=== PATIENT | female | born 1945 | race Caucasian/White ===

== ENCOUNTER → 2021-03-12 12:40 | Day surgery (SDC) | payer MEDICARE, SELFPAY | PROVIDERS: PCP Family Medicine; Visit Provider Orthopaedic Surgery | DX: Z01.818 Encounter for other preprocedural examination (principal) | CPT/HCPCS: 93005 ==

== ENCOUNTER 2021-03-25 11:56 | Observation (INO) | payer MEDICARE, SELFPAY ==
[2021-03-12 12:09] VITALS: BMI 28.5
[2021-03-12 12:37] LABS: Basophils # 0.1 10^3/uL (0.0-0.1); Basophils % 0.8 %; Eosinophils # 0.3 10^3/uL (0.0-0.8); Eosinophils % 3.7 %; Hematocrit 39.8 % (37.0-47.0); Hemoglobin 12.9 g/dL (11.5-15.3); Lymphocytes # 3.1 10^3/uL (0.8-4.8); Lymphocytes % 41.9 %; Mean Corpuscular HGB Conc 32.4 g/dL (30.0-36.0); Mean Corpuscular Hemoglobin 32.9 pg (28.0-34.0); Mean Corpuscular Volume 101.5 fL (81-99); Mean Platelet Volume 10.7 fL (7.4-10.4); Monocytes # 0.7 10^3/uL (0.2-0.9); Monocytes % 9.9 %; Neutrophils # 3.17 10^3/uL (1.8-7.7); Neutrophils % 43.4 %; Nucleated Red Blood Cells % 0 %; Platelet Count 232 10^3/cmm (130-400); Red Blood Count 3.92 10^6/uL (4.1-5.3); Red Cell Distribution Width 14.3 % (12.1-15.1); White Blood Count 7.3 10^3/uL (4.0-10.0)
--- NOTE | 2021-03-12 12:40 | ECG_ITS ---
[facility] [place] Date: 2021-03-12 Pat Name: Washington Reyes Department: Room: Gender: Female [employer] Player: : 1945 Requested By: Joshua Rivera Order Number: [id number] Ronak MD: Abram Alvarez M.D. Measurements Intervals [place] Rate: 56 P: 23 CA: 207 QRS: 11 QRSD: 100 T: -1 QT: 370 QTc: 360 Interpretive Statements SINUS BRADYCARDIA INFERIOR MYOCARDIAL INFARCTION [40+ ms Q WAVE AND/OR ST/T ABNORMALITY IN II/aVF], PROBABLY OLD Compared to ECG 04/14/2016 22:01:26 Myocardial infarct finding now present Sinus rhythm no longer present Sinus arrhythmia no longer present Intraventricular conduction delay no longer present T-wave abnormality no longer present Possible ischemia no longer present Electronically Signed On 03-12-2021 19:14:14 CDT by Abram Alvarez M.D. [id number]
[2021-03-12 12:55] LABS: Alanine Aminotransferase 10 U/L (0-33); Albumin Level 3.7 g/dL (3.5-5.2); Alkaline Phosphatase 80 IU/L (35-105); Aspartate Amino Transferase 21 U/L (0-32); Blood Urea Nitrogen 15 mg/dL (8-23); Calcium 8.6 mg/dL (8.5-10.5); Carbon Dioxide 25 mmol/L (22-29); Chloride 103 mmol/L (98-107); Globulin 3.2 g/dL (1.3-4.6); Glucose 102 mg/dL (65-115); Osmolality Calculated 289 mOsm/kg (285-295); Sodium 139 mmol/L (136-145); Total Bilirubin 0.4 mg/dL (0.15-1.2); Total Protein 6.9 g/dL (6.6-8.7)
[2021-03-12 12:56] LABS: Anion Gap 14.4 (5-19); Potassium 3.4 mmol/L (3.5-5.1)
--- NOTE | 2021-03-12 14:22 | P.ANESASSM_ITS ---
Pre-Anesthetic Assessment Pre-Anesthetic Assessment: Height/Weight: Height 1.6 m Weight 73.028 kg Proposed Procedure: Operation Date: 03/25/21 12:20 Proposed Procedures p right total knee arthroplasty 17536 M17.11(Right) - Johnny Wong MD Was Beta Harinder taken within 24 hours: N/A Was Clonidine taken within 24 hours: N/A Social: Social History: No alcohol and No tobacco Exam: Pre-Anes Outpt Exam: alert, oriented x 3, clear to auscultation bilaterally and regular rate & rhythm Airway: Submandibular: WNL Cervical ROM: WNL MP: 2 Dentition: Chipped Additional comments: Generally full, some chipped CV/HEM: CV/HEM: HTN Metabolic: Metabolic: Thyroid Musc/skel: Musc/skel: OA/DJD Anesthetic Plan: ASA status: 2 Anesthesia: Regional (specify below) (SAB/adductor blk) Risk of > 500 ml blood loss (7ml/kg in children): No Data Anesthesia CBC & Chem 7: 03/12/21 12:30 03/12/21 12:30 Other Labs: Laboratory Results - last 48 hr 03/12/21 03/12/21 12:30 12:30 WBC 7.3 RBC 3.92 L Hgb 12.9 Hct 39.8 MCV 101.5 H MCH 32.9 MCHC 32.4 RDW 14.3 Plt Count 232 MPV 10.7 H Neut % (Auto) 43.4 Lymph % (Auto) 41.9 [place] % (Auto) 9.9 Eos % (Auto) 3.7 Baso % (Auto) 0.8 Neut # (Auto) 3.17 Lymph # (Auto) 3.1 [place] # (Auto) 0.7 Eos # (Auto) 0.3 Baso # (Auto) 0.1 Nucleated RBC % (auto) 0 Nucleated RBCs # 0.0 Sodium 139 Potassium 3.4 L Chloride 103 Carbon Dioxide 25 Anion Gap 14.4 BUN 15 Creatinine 1.0 H GFR Calculation Not Reportable Glucose 102 Calculated Osmolality 289 Calcium 8.6 Total Bilirubin 0.4 AST 21 ALT 10 Alkaline Phosphatase 80 Total Protein 6.9 Albumin 3.7 Globulin 3.2 Cardiac Studies: No Data to Display
[2021-03-25] VITALS (21 sets, daily range): BP systolic 114–160; BP diastolic 47–90; PULSE 62–89; RESP 14–20; TEMP 36.4–36.8; O2SAT 95–99
[2021-03-25] MEDS: sodium chloride 0.9% 1,000 ML 30 ML IV (08:22)
[2021-03-25] MEDS: oxyCODONE 20 mg ER (12 HR) Tablet PO (08:29)
[2021-03-25] MEDS: CELEcoxib 200 mg Capsule 400 MG PO (08:30)
[2021-03-25] MEDS: gabapentin 300 mg Capsule PO ×2 (08:30→17:05)
[2021-03-25] MEDS: acetaminophen 500 mg Tablet 1000 MG PO ×2 (08:30→17:04)
--- NOTE | 2021-03-25 09:12 | P.ANESUD_ITS ---
Pre-Anesthetic Update Pre-Anesthetic Assessment: Date of Surgery/Procedure: 03/25/21 Preop Alexandra gnosis: Osteoarthritis Right knee Proposed Procedure: Operation Date: 03/25/21 09:40 Proposed Procedures p right total knee arthroplasty 53593 M17.11(Right) - Johnny Wong MD Any changes to Pre-Anesthetic Assessment?: No Last Intake: Intake Last Liquid Date 03/24/21 Last Liquid Time 21:00 Last Solid Date 03/24/21 Last Solid Time 21:00 Vitals: Temperature 97.7 F 03/25/21 07:55 Temperature Source Temporal Artery S can 03/25/21 07:55 Pulse Rate 62 03/25/21 07:55 Respiratory Rate 18 03/25/21 07:55 Respiratory Depth Normal 03/25/21 08:29 Respiratory Patter n 03/25/21 08:29 Blood Pressure 160/90 03/25/21 07:55 Blood Pressure Evonne n 113 03/25/21 07:55 Pulse Oximetry 97 03/25/21 08:29 Oxygen Delivery Me thod 03/25/21 08:00 Exam: Pre-Anes Outpt Exam: alert, oriented x 3, clear to auscultation bilaterally and regular rate & rhythm Other Pertinent Information: Other Pertinent Information: GA/LMA with adductor blk Cardiac Studies: No Data to Display
--- NOTE | 2021-03-25 09:18 | P.HP_ITS ---
Same Day Surgery H&P Indication for Procedure/HPI DATE OF PROCEDURE: March 25, 2021 CHIEF COMPLAINT/INDICATIONFOR SURGICAL PROCEDURE: 75-year-old with chronic right knee pain failing to respond to conservative measures admitted for elective right total knee arthroplasty PREOP DIAGNOSIS: Osteoarthritis Right knee PLANNED PROCEDRUE: Operation Date: 03/25/21 09:40 Proposed Procedures p right total knee arthroplasty 77413 M17.11(Right) - Johnny Wong MD Medications/Allergies* Home Medications Medication Instructions Recorded Confirmed Type hydrocodone 10 mg-acetaminophen 1 tab PO Q6H PRN 10/19/19 03/25/21 History 325 mg tablet hydroxychloroquine 200 mg tablet 200 mg PO BID 10/19/19 03/25/21 History losartan 100 mg tablet 100 mg PO DAILY 10/19/19 03/25/21 History amlodipine 5 mg PO DAILY 03/12/21 03/25/21 History folic acid 1 mg PO DAILY 03/12/21 03/25/21 History gabapentin 300 mg PO DAILY 03/12/21 03/25/21 History hydrochlorothiazide 25 mg PO DAILY 03/12/21 03/25/21 History levothyroxine [Synthroid] 125 mcg PO DAILY 03/12/21 03/25/21 History Allergies/Adverse Reactions Allergy/AdvReac Type Severity Reaction Status Date / Time No Known Allergies Allergy Verified 03/25/21 07:47 Current Medications: Generic Name Dose Route Start Last Admin Trade Name Freq PRN Reason Stop Dose Admin Sodium Chloride 1,000 mls @ 30 mls/hr 03/25/21 07:45 03/25/21 08:22 Sodium Chloride 0.9% IV 03/26/21 07:44 30 mls/hr .Q24H CHOLO Administration Pertinent Exam Findings alert, oriented x 3, clear to auscultation bilaterally, regular rate & rhythm and operative site marked Recommendations Surgery/Procedure today Coding Level of Care Code Acute Multimedia Production Assistant for Kelsie Gastelum
--- NOTE | 2021-03-25 10:29 | ANES.PROC ---
Anesthesia Procedures Procedure/Date: 03/25/21 Nerve Block ^: Nerve Block 1: Main Anesthesia: general anesthesia Time Out Performed: Yes Consent: requested by attending/covering physician, from patient, risks and benefits reviewed and patient agrees to proceed Nerve block location: adductor canal (right) Anesthesia monitors applied: pulse oximetry, EKG, BP cuff and oxygen Nerve block position: supine Anesthetic Used: ropivicaine 0.5% Amount of anesthesia used (mL): 20 Ultrasound used to: recognize landmarks Nerve Stimulator Used?: No Interscalene/Femoral BLK: 4 stimuplex 21 g needle used for position and inplane approach and visualize local anesthetic spread Injection: neg aspiration of heme Patient Tolerated Procedure: well Complications: none
[2021-03-25] MEDS: tranexamic acid 1,000 mg/10mL SDV 1000 MG IRRIGATION (10:33)
[2021-03-25] MEDS: EPINEPHrine 1 mg/mL INJ (10:34)
[2021-03-25] MEDS: ketorolac 30 mg/mL INJ (10:34)
--- NOTE | 2021-03-25 11:29 | P.OP_ITS ---
Operative Report Date of procedure: March 25, 2021 Pre-op Diagnosis: Osteoarthritis Right knee Post-op diagnosis: same Post-op Findings: Same Procedure Done: Right total knee arthroplasty r Implants: Anam total knee arthroplasty components were used includin) Size 4 triathalon cruciate retaining femoral component 2) Size 4 Tritanium tibial component 3) 32 mm /9 mm thickness Tritanium asymetric patella 4) Size 4/13 mm thickness CR tibial bearing insert Pathology: none sent Anesthesia: General and Nerve Block (Adductor canal) Estimated blood loss (mL): 200 Complications: None Findings: The patient had tricompartmental degenerative changes with marked eburnation over the medial femoral condyle and medial tibial plateau Condition: stable Disposition: PACU Procedure: The patient was taken to the operating room. Patient was given 1 g of tranexamic acid . The above anesthesia provided by the anesthesia service. A timeout was performed. The patient was prepped and draped in the usual fashion with the lower extremity exposed. A anterior incision was made, midlin e, from a point proximal to the patella to the distal tibial tubercle. The knee was entered through a medial parapatellar approach. The patella could be displaced laterally and the knee flexed. The patellar fat pad was resected to provide better visibility. Retractors were placed medially and laterally adjacent to the tibial plateau. The femoral canal was drilled in line with the longitudinal axis of the femur. Intramedullary femoral guide for used to make a distal femoral cut in 5 degrees of valgus, resecting 8 mm from the more prominent condyle. Next the extra medullary tibial guide was placed in alignment with the longitudinal axis of the tibia. The cutting guides were set to remove just over 9 mm from the high tibial plateau. The proximal tibia was then cut. The femoral measuring guide was then placed over the distal femur. Rotation was verified checking the relationship of the guide to the condyle and the trochlear groove. The femur was measured and cut for the desired femoral component. The desired tibial baseplate was then chosen. A trial reduction with the femur tibial baseplate and polyethylene was done, assuring that the knee was stable throughout full motion. Ligament balancing please nothing more the deep medial collateral ligament.The tibia was prepared for the tibial baseplate. Patellar thickness was then measured. The patella was cut removing articular cartilage and prepared for appropriate size patellar button. All surfaces were cleaned with an antibiotic tranexamic acid solution. The femur tibia and patella were then press-fit into place. The patella was not felt to be stable after press fitting it was removed, the implant and bone surfaces cleaned with saline and patella recemented into place. The posterior capsule and collateral ligaments were then injected with a solution of 100 mL of 0.2% ropivacaine, 1 mL of a 1:1000 epinephrine solution, and 30 mg of Toradol. Final polyethylene component was then snapped into place into the tibia. 2 grams of tranexamic acid were applied to the wound. The tourniquet was deflated. The tranxanemic acid was left contact with the knee for 5 minutes before the knee was irrigated with saline. The extensor retinaculum was closed with a running 1 Stratafix.. The subcutaneous tissues were closed with 2-0 Vicryl and the skin was closed with a running 3-0 Stratafix. The wound was covered with a Dermabond Prinio dressing. It was covered with 4xrs and a compressive Tubigauae was applied. The patient was taken to recovery room in stable condition.
--- NOTE | 2021-03-25 11:39 | XR_ITS ---
WS: [id number] Exam: XR knee RT 1-2V [id number] Date/Time of Exam: 03/25/2021 11:49 AM Reason For Exam: Right Total Knee arthroplasty Comparison 08/24/2019. A total knee arthroplasty is noted. Alignment is satisfactory. Postoperative changes in the adjacent soft tissues. XR/XR knee RT 1-2V [id number] IMPRESSION: 1. Total hip replacement in excellent position.
[2021-03-25] MEDS: fentaNYL 50 mcg/mL INJ 2mL IVP (11:44)
[2021-03-25] MEDS: sodium chloride 0.9% 1,000 ML 100 ML IV (12:52)
--- NOTE | 2021-03-25 13:38 | ANE.PACU2 ---
Inpatient post-anesthesia follow up: Airway intact: Yes Vital signs: Temperature 97.6 F Pulse Rate 71 Respiratory Rate 16 Blood Pressure 114/60 Pulse Oximetry 97 Oxygen Delivery Me thod Room Air Oxygen Flow Rate Fraction of Inspir ed Oxygen Hydration adequate: Yes Nausea and vomiting: No Pain level: 2 Mental status: Baseline
[2021-03-25] MEDS: oxyCODONE 5 mg IR Tab/Cap 10 MG PO ×2 (13:47→20:19)
--- NOTE | 2021-03-25 13:54 | SUR.PHASEI ---
1213 PT AWAKE ALERT RESTING QUIETLY , TAKING ICE CHIPS FIRST ICE TO KNEE PT TO FLOOR PER CART WITH RN FROM OPS.
[2021-03-25] MEDS: hydroxychloroquine 200 mg Tablet PO (17:04)
[2021-03-25] MEDS: sennosides-docusate Tablet 2 TAB PO (17:05)
--- NOTE | 2021-03-25 18:20 | PC.NURSE ---
SHIFT SUMMARY PATIENT HAS DONE WELL TODAY. PAIN WELL CONTROLLED WITH ORAL PAIN MEDICATIONS. SURGICAL INCISION C/D/I. GOOD NEUROVASCULAR CHECKS. GOOD URINE OUTPUT. NO COMPLAINTS AT THIS TIME.
[2021-03-25] MEDS: CELEcoxib 200 mg Capsule PO (20:15)
[2021-03-25] MEDS: morphine 4 mg/mL SDV 1 mL IVP (22:07)
[2021-03-26] VITALS (10 sets, daily range): BP systolic 94–149; BP diastolic 48–73; PULSE 51–62; RESP 14–18; TEMP 36.5–37; O2SAT 94–99
[2021-03-26] MEDS: sodium chloride 0.9% 1,000 ML 100 ML IV (02:27)
[2021-03-26] MEDS: acetaminophen 500 mg Tablet 1000 MG PO ×3 (02:27→16:23)
[2021-03-26 02:45] LABS: Hemoglobin 10.8 g/dL (11.5-15.3)
--- NOTE | 2021-03-26 08:01 | P.PN_ITS ---
Subjective Subjective: Interval history: Patient examined earlier today. Complained of some pain. Reported nausea this afternoon Vitals/I&O/Wt Last Vital Signs Temp 97.7 F 03/26/21 11:30 Pulse 51 L 03/26/21 11:30 Resp 17 03/26/21 11:30 BP 99/57 03/26/21 11:30 Pulse Ox 97 03/26/21 11:30 03/26/21 03/26/21 03/26/21 06:59 14:59 22:59 Intake Total 50 / 1680 300 / 300 Output Total 300 / 850 100 / 100 Balance -250 / 830 200 / 200 Physical Exam Narrative: EXAM NARRATIVE: Right knee dressing clean and dry. Minimal swelling knee and calf Urinary Catheter Management^: Bowman: Cath Placed During This Visit: yes, but has since been removed by the nurse Reason for Continuing Indwelling Catheter: Perioperative Use in Selected Surgeries Urinary Catheter Date of Insertion: 03/25/21 Urinary Catheter Time of Insertion: 09:55 Date Urinary Catheter Removed: 03/26/21 Time Urinary Catheter Discontinued: 07:30 Data : 03/26/21 02:18 03/12/21 12:30 A&P Assessment and plan (1) Osteoarthritis of right knee: Status: Acute (2) Status post right knee replacement: Patient slow to regain amatory status with therapy. We will plan on discharge tomorrow. Status: Acute Attestations Medical Necessity Statement*: Patient independent with therapy. Plan discharge tomorrow. Coding Level of Care Code Acute Guidance Counselor for Kelsie Gastelum Diagnoses Osteoarthritis of right knee M17.11 Status post right knee replacement Z96.651
[2021-03-26] MEDS: oxyCODONE 5 mg IR Tab/Cap 10 MG PO ×3 (09:04→20:17)
[2021-03-26] MEDS: hydroCHLOROthiazide 25 mg Tablet PO (09:06)
[2021-03-26] MEDS: sennosides-docusate Tablet 2 TAB PO ×2 (09:06→17:35)
[2021-03-26] MEDS: hydroxychloroquine 200 mg Tablet PO ×2 (09:07→17:35)
[2021-03-26] MEDS: folic acid 1 mg Tablet PO (09:09)
[2021-03-26] MEDS: gabapentin 300 mg Capsule PO ×2 (09:09→17:40)
[2021-03-26] MEDS: levothyroxine 125 mcg Tablet PO (09:10)
[2021-03-26] MEDS: losartan 50 mg Tablet 100 MG PO (09:11)
[2021-03-26] MEDS: amlodipine 5 mg Tablet PO (09:11)
[2021-03-26] MEDS: CELEcoxib 200 mg Capsule PO ×2 (09:11→20:15)
--- NOTE | 2021-03-26 10:26 | PC.NURSE ---
Checked on pt after her session with PT. She is up sitting in her chair. She was asked to push the call light whenever she is ready to get back into bed. Call light within reach. No pain complaints.
[2021-03-26] MEDS: aspirin 325 mg EC Tablet PO (11:12)
[2021-03-26] MEDS: famotidine 20 mg Tablet 40 MG PO (12:11)
--- NOTE | 2021-03-26 18:42 | PC.NURSE ---
Deni gillette She was up with PT today and tolerated it well. She can get out of bed and move over to her chair. She wants to do it all on her own but needs assistance sometimes. Pain meds have helped with the pain. She has been up and has used the restroom. Has not had a stool but it passing gas.
[2021-03-27] VITALS: BP 126/58; PULSE 50; RESP 16; TEMP 36.6; O2SAT 93
[2021-03-27] MEDS: acetaminophen 500 mg Tablet 1000 MG PO ×2 (00:12→08:12)
[2021-03-27 04:00] VITALS: BP 106/64; PULSE 51; RESP 18; TEMP 36.6; O2SAT 95
[2021-03-27 08:00] VITALS: BP 120/69; PULSE 54; RESP 17; TEMP 37.1; O2SAT 98
[2021-03-27] MEDS: sennosides-docusate Tablet 2 TAB PO (08:11)
[2021-03-27] MEDS: CELEcoxib 200 mg Capsule PO (08:12)
[2021-03-27] MEDS: hydroxychloroquine 200 mg Tablet PO (08:13)
[2021-03-27] MEDS: gabapentin 300 mg Capsule PO (08:13)
[2021-03-27] MEDS: aspirin 325 mg EC Tablet PO (08:13)
[2021-03-27] MEDS: levothyroxine 125 mcg Tablet PO (08:13)
[2021-03-27] MEDS: folic acid 1 mg Tablet PO (08:13)
--- NOTE | 2021-03-27 08:13 | P.DS_ITS ---
Discharge Providers Date of Admission: 03/25/21 11:56 Date of Discharge: March 27, 2021 Attending Provider at Admission: Johnny Wong MD Attending Provider at Discharge: Johnny Wong MD Primary Care Provider: Maurice Alcantar Diagnoses at Discharge Discharge Diagnosis (1) Osteoarthritis of right knee: Status: Acute (2) Status post right knee replacement: Status: Acute Reason for Visit Reason for Visit: right total knee arthroplasty 32745 Hospital Course Hospital Course The patient is a 75-year-old female with osteoarthritis of the right knee admitted for elective right total knee arthroplasty. Postoperatively she did well medically. She had problems with pain control and nausea on her first day. By the second day her pain was better controlled. She made excellent progress with therapy. She was discharged home on her second day. Physical Exam Narrative: EXAM NARRATIVE: On the day of discharge his knee incision was clean. They had no drainage. There is minimal swelling in the thigh and knee and the calf. No distal neurovascular deficits were noted Urinary Catheter Management^: Bowman: Cath Placed During This Visit: yes, but has since been removed by the nurse Reason for Continuing Indwelling Catheter: Perioperative Use in Selected Surgeries Urinary Catheter Date of Insertion: 03/25/21 Urinary Catheter Time of Insertion: 09:55 Date Urinary Catheter Removed: 03/26/21 Time Urinary Catheter Discontinued: 07:30 Discharge Data Data Completed and Pending: Completed Studies During Hospitalization Category Date Time Status XR knee RT 1-2V 7 3560 Routine Exams 03/25/21 11:39 Completed Vitals: Last Vital Signs Temp 97.9 F 03/27/21 04:00 Pulse 51 L 03/27/21 04:00 Resp 18 03/27/21 04:00 BP 106/64 03/27/21 04:00 Pulse Ox 95 03/27/21 04:00 Discharge Plan Discharge Patient Disposition: Home Condition: Stable Prescriptions: New oxycodone 5 mg Tablet 5 mg PO Q4H PRN (Reason: Severe Pain) 7 Days Qty: 40 RF: 0 aspirin 325 mg Tablet,Delayed Release (Dr/Ec) 325 mg PO DAILY 30 Days Qty: 30 RF: 0 celecoxib 200 mg Capsule 200 mg PO Q12H 15 Days Qty: 30 RF: 0 acetaminophen 500 mg Tablet 500 mg PO Q8H 15 Days Qty: 45 RF: 0 gabapentin 300 mg Capsule 300 mg PO BID 7 Days Qty: 14 RF: 0 Continued losartan 100 mg tablet 100 mg PO DAILY RF: 0 hydrocodone-acetaminophen [[place]] 10-325 mg tablet 1 tab PO Q6H PRN (Reason: Pain) RF: 0 hydroxychloroquine 200 mg tablet 200 mg PO BID RF: 0 mupirocin 2 % ointment 1 applic topical BID Qty: 22 RF: 0 amlodipine 5 mg tablet 5 mg PO DAILY RF: 0 levothyroxine [Synthroid] 125 mcg tablet 125 mcg PO DAILY RF: 0 gabapentin 300 mg capsule 300 mg PO DAILY RF: 0 folic acid 1 mg tablet 1 mg PO DAILY RF: 0 hydrochlorothiazide 25 mg tablet 25 mg PO DAILY RF: 0 Discharge Orders: Discharge Order (Routine); Ordered 03/27/21 Ordered By: Johnny Wong Other Ambulatory Orders: DME: [facility] (Order) Location: None Selected Ordered By: Johnny Wong [facility] [place] [facility] [Outside] Johnny Wong MD [Physician] - 4-7 days Discharge Diet: Advance as tolerated Discharge Activity: Limit activity as instructed Patient Instructions: Opioid Safety Activity Restrictions/Additional Instructions: Okay to shower Keep Tubigauze sleeve in place for swelling. Okay to remove for hygiene. Apply FirstIce up to 20 min/hr for pain and swelling Take Celebrex twice a day for the next 15 days for pain , discontinue other anti-inflammatories Take Neurontin twice a day for 7 days. Take Tylenol 500mg as needed 3 times a day for mild pain Continue to take [place] as previously prescribed take oxycodone for breakthrough pain. Exercises per physical therapy. May weight-bear as tolerated on total knee arthroplasty Discharge Attestations Time Spent in Discharge Care*: other Quality Metrics Clinical Quality Measures During this hospital stay, did patient experience: None Coding Level of Care Code Acute Chg FW DC note Diagnoses Osteoarthritis of right knee M17.11 Status post right knee replacement Z96.651
[2021-03-27] MEDS: losartan 50 mg Tablet 100 MG PO (08:14)
[2021-03-27 08:28] VITALS: RESP 18
[2021-03-27] MEDS: oxyCODONE 5 mg IR Tab/Cap 10 MG PO (08:28)
== END 2021-03-27 10:11 | disposition home or self-care (01) ==
LOC: MEDSURG 11:56
PROVIDERS: Anesthesiology; Admitting Provider Orthopaedic Surgery; PCP Family Medicine; Visit Provider Orthopaedic Surgery
PROC: (CPT 27447; principal; 2021-03-25 09:10)
DX: M17.11 Unilateral primary osteoarthritis, right knee (principal); I10 Essential (primary) hypertension
CPT/HCPCS: 27447; 36415; 51702; 64447; 73560; 76942; 80053; 85018; 85025; 97110; 97116; 97161; 97166; 97530; C1713; C1776; G0378; J0171; J0690; J1100; J1580; J1885; J2270; J2405; J2704; J2795; J3010; J3490; J7030

== ENCOUNTER → 2021-05-07 10:27 | Outpatient (BNVA) | payer MEDICARE, SELFPAY | PROVIDERS: PCP Family Medicine; Visit Provider Orthopaedic Surgery | DX: Z48.89 Encounter for other specified surgical aftercare (principal); Z96.651 Presence of right artificial knee joint | CPT/HCPCS: 73560; 73565 ==

== ENCOUNTER 2021-05-14 06:00 | Outpatient (RCR) | payer MEDICARE, SELFPAY | END 2021-06-11 23:59 | disposition home or self-care (01) | LOC: WPT 06:00 | PROVIDERS: PCP Family Medicine; Visit Provider Orthopaedic Surgery | DX: Z47.1 Aftercare following joint replacement surgery (principal); Z96.651 Presence of right artificial knee joint | CPT/HCPCS: 97110; 97140; 97163 ==

== ENCOUNTER → 2024-06-15 12:50 | Outpatient (BNVA) | payer MEDICARE, SELFPAY | PROVIDERS: PCP Family Medicine; Visit Provider Nurse Practitioner | DX: M25.562 Pain in left knee (principal); M17.12 Unilateral primary osteoarthritis, left knee | CPT/HCPCS: 73560; 73565; 99204 ==

== ENCOUNTER → 2024-07-22 10:33 | Outpatient (BNVA) | payer MEDICARE, SELFPAY | PROVIDERS: PCP Family Medicine; Visit Provider Nurse Practitioner | DX: M17.12 Unilateral primary osteoarthritis, left knee (principal) | CPT/HCPCS: 99214 ==

== ENCOUNTER → 2024-07-26 08:35 | Outpatient (BNVA) | payer MEDICARE, SELFPAY | PROVIDERS: PCP Family Medicine; Visit Provider Family Medicine | DX: Z01.818 Encounter for other preprocedural examination (principal) | CPT/HCPCS: 81003; 87086; 93005 ==

== ENCOUNTER 2024-08-10 08:23 | Outpatient (CLI) | payer MEDICARE, SELFPAY ==
--- NOTE | 2024-08-10 08:28 | CT_ITS ---
WS: [id number] CT LEFT knee, noncontrast HISTORY: M17.12 - Unilateral primary osteoarthritis, left knee TECHNIQUE: Protocol for VEL total knee replacement has been obtained. This includes axial imaging th rough the LEFT hip, LEFT knee and LEFT ankle. DLP: 824.83 mGy.cm COMPARISON: Radiograph 06/15/2024 Hips are symmetric bilaterally. Mild muscle atrophy. LEFT knee: Advanced tricompartment osteoarthritis. Marginal osteophytes and joint space narrowing. No fractures. Orthopedic staple medial femoral condyle. Moderate to large joint effusion. There are sma ll loose bodies within the joint effusion which are calcified. Moderate-sized Mccann's cyst. LEFT ankle negative. CT/CT knee [facility] [address] IMPRESSION: CT imaging provided for [facility] robotic total knee replacement.
[2024-08-10 09:19] LABS: Bilirubin Urine Negative (Negative); Blood Urine Negative (Negative); Glucose Urine UA Negative (Normal); Ketones Urine Negative (Negative); Leukocyte Esterase Urine 2+ (Negative); Nitrate Urine Negative (Negative); Protein Urine Negative (Negative); Specific Gravity, Urine 1.017 (1.005-1.030); Urine Appearance Clear (CLEAR); Urine Color Yellow (Yellow)
[2024-08-10 09:33] LABS: Anion Gap 12.9 (5-19); Blood Urea Nitrogen 14 mg/dL (8-23); Calcium 8.6 mg/dL (8.5-10.5); Carbon Dioxide 25 mmol/L (22-29); Chloride 103 mmol/L (98-107); Glucose 106 mg/dL (65-115); Osmolality Calculated 285 mOsm/kg (285-295); Potassium 3.9 mmol/L (3.5-5.1); Sodium 137 mmol/L (136-145)
[2024-08-10 09:43] LABS: RBC Urine 0-4 /hpf (0-2); Transitional Epi Cells Urine 0-4 /hpf; WBC Urine 0-4 /hpf (0-5)
[2024-08-10 09:44] LABS: Bacteria Urine 2+ /hpf; Mucus Urine 1+ /hpf
[2024-08-10 09:45] LABS: Add Urine Culture? Yes; Oval Fat Bodies Urine 1+ /hpf
== END 2024-08-10 08:24 | disposition home or self-care (01) ==
LOC: RAD 08:24
PROVIDERS: Family Medicine; PCP Family Medicine; Visit Provider Nurse Practitioner
DX: Z01.818 Encounter for other preprocedural examination (principal); M17.12 Unilateral primary osteoarthritis, left knee; M25.762 Osteophyte, left knee; M25.462 Effusion, left knee; M71.22 Synovial cyst of popliteal space [Baker], left knee
CPT/HCPCS: 36415; 73700; 80048; 80053; 81001; 85025; 87086

== ENCOUNTER 2024-08-18 13:34 | Observation (INO) | payer MEDICARE, SELFPAY ==
[2024-08-18] VITALS (20 sets, daily range): BP systolic 108–145; BP diastolic 58–95; PULSE 52–77; RESP 14–20; TEMP 36.1–36.8; O2SAT 95–100; BMI 25.4; BMI 28.3
--- NOTE | 2024-08-18 07:12 | W.PM.OPSUD ---
Surgery/Procedure H&P Update DATE OF PROCEDURE: August 18, 2024 DATE H&P PERFORMED: 07/26/24 H&P UPDATE INFORMATION: I have reviewed H&P completed within last 30 days, I have examined patient prior to procedure, No changes to prior documentation and H&P is in [facility] [place] on date indicated PLANNED PROCEDURE: Operation Date: 08/18/24 08:30 Proposed Procedures p Lorenzo Robot Total Knee Arthroplasty(Left) - Joseline Espinoza MD Related Problem List Diagnoses (1) Primary osteoarthritis of left knee:
[2024-08-18] MEDS: sodium chloride 0.9% 1,000 ML 30 ML IV (07:24)
[2024-08-18] MEDS: gabapentin 300 mg Capsule PO (07:33)
[2024-08-18] MEDS: CELEcoxib 200 mg Capsule 400 MG PO (07:34)
[2024-08-18] MEDS: acetaminophen 1,000 MG/100 ML PIGGYBACK 400 MG IV ×3 (07:39→22:31)
--- NOTE | 2024-08-18 07:58 | P.ANESASSM_ITS ---
Pre-Anesthetic Assessment Height/Weight: Height 1.6 m Weight 65.317 kg Temp Pulse Resp BP Pulse Ox O2 Del Method 97 F L 77 18 145/95 95 Room Air 08/18/24 07:08 08/18/24 07:08 08/18/24 07:08 08/18/24 07:08 08/18/24 07:08 08/18/24 07:12 Operation Date: 08/18/24 08:30 Proposed Procedures p Lorenzo Robot Total Knee Arthroplasty(Left) - Joseline Espinoza MD Familial anesthetic complications: None Was Beta Harinder taken within 24 hours: N/A Was Clonidine taken within 24 hours: N/A Last intake: Intake Last Liquid Date 08/17/24 Last Liquid Time 20:00 Last Solid Date 08/17/24 Last Solid Time 20:00 Social No alcohol and No tobacco Exam alert, oriented x 3, clear to auscultation bilaterally and regular rate & rhythm Airway Mallampati: Class II Dentition: full CV/HEM Hypertension Metabolic Thyroid Disease Anesthetic Plan ASA status: 3 Anesthesia: Regional (specify below) Risk of > 500 ml blood loss (7ml/kg in children): No Medications/Allergies Home Medications Medication Instructions Recorded Confirmed Last Taken Type hydrocodone 10 mg-acetaminophen 1 tab PO Q6H PRN Pain 10/19/19 08/17/24 08/15/24 History 325 mg tablet ([place]) losartan 100 mg tablet 100 mg PO DAILY 10/19/19 08/17/24 08/17/24 History mupirocin 2 % topical ointment 1 applic topical BID #22 grams 02/01/21 08/17/24 03/25/21 04:00 Rx amlodipine 5 mg tablet 5 mg PO DAILY 03/12/21 08/17/24 08/18/24 04:15 History folic acid 1 mg tablet 1 mg PO DAILY 03/12/21 08/17/24 03/25/21 04:00 History hydrochlorothiazide 25 mg tablet 25 mg PO DAILY 03/12/21 08/17/24 08/17/24 History diclofenac sodium 1 % topical gel 2 g topical QID #100 grams 06/17/24 08/17/24 Unknown Rx albuterol sulfate 90 mcg/actuation 2 puff inhalation Q6H PRN Allergy 07/26/24 08/17/24 Unknown History aerosol inhaler Symptoms gabapentin 100 mg capsule 100 mg PO DAILY PRN Pain 07/26/24 08/17/24 08/15/24 History hydroxychloroquine 200 mg tablet 400 mg PO DAILY 07/26/24 08/17/24 08/17/24 History levothyroxine 125 mcg tablet 112 mcg PO DAILY 07/26/24 08/17/24 08/18/24 04:15 History (Synthroid) methotrexate sodium 2.5 mg tablet 10 mg PO Q7D 07/26/24 08/17/24 08/15/24 History potassium chloride 20 mEq 20 meq PO DAILY 07/26/24 08/17/24 08/16/24 History tablet,extended release quetiapine 25 mg tablet 25 mg PO .qhs PRN Sleep 07/26/24 08/17/24 08/16/24 History Allergies Allergy/AdvReac Type Severity Reaction Status Date / Time No Known Allergies Allergy Verified 08/18/24 07:02 Current Medications Generic Name Dose Route Start Last Admin Trade Name Freq PRN Reason Stop Dose Admin Sodium Chloride 1,000 mls @ 30 mls/hr 08/18/24 07:00 08/18/24 07:24 Sodium Chloride 0.9% IV 08/19/24 06:59 30 mls/hr .Q24H CHOOL Administration PFSH Anesthesia Medical History Primary osteoarthritis of left knee Social History Smoking and tobacco/nicotine status: never used tobacco/nicotine Data Anesthesia Cardiac Studies: No Data to Display
--- NOTE | 2024-08-18 07:59 | ANES.PROC ---
Anesthesia Procedures Procedure/Date: 08/18/24 Nerve Block ^: Nerve Block 1: Main Anesthesia: spinal anesthesia block Time Out Performed: Yes Consent: requested by attending/covering physician, from patient, from other, risks and benefits reviewed and patient agrees to proceed Nerve block location: adductor canal (L) Anesthesia monitors applied: pulse oximetry, EKG, BP cuff and oxygen Nerve block position: supine Anesthetic Used: ropivicaine 0.5% (25 ml) and with decadron (4 mg) Ultrasound used to: recognize landmarks and visualize and ID femerol nerve Nerve Stimulator Used?: No Interscalene/Femoral BLK: 4 stimuplex 21 g needle used for position and inplane approach, visualize local anesthetic spread and no vascular puncture identified Injection: neg aspiration of heme Patient Tolerated Procedure: well
--- NOTE | 2024-08-18 08:00 | PC.NURSE ---
PATIENT PREPPED FOR NERVE BLOCK. HOOKED UP TO EKG, BP AND O2 SAT. TIME OUT CALLED AND PATIENT PREPPED USING CHLOROPREP, POPILTEAL BLOCK PERFORMED USING 0.5% ROPIVACAINE GIVEN. PATIENT TOLERATED PROCEDURE WELL
--- NOTE | 2024-08-18 08:04 | SUR.PREOP ---
25CC OF HALF PERCENT ROPIVACAINE GIVEN
--- NOTE | 2024-08-18 08:23 | P.OP_ITS ---
Operative Report Date of procedure: August 18, 2024 Pre-op diagnosis: Primary osteoarthritis left knee Post-op diagnosis: Primary osteoarthritis left knee with retained hardware and osteopenia Post-op findings: Large osteophytes with varus deformity and flexion, valgus in extension. Retained hardware. Loss of bone from removal of retained staple medial knee involving medial femoral condyle. Procedure done: Left total knee arthroplasty, cemented, with hardware removal from medial femoral condyle Implants: Left total knee arthroplasty utilizing the following components: The Anam triathlon total knee system with a size 4 cemented cruciate retaining left femoral component and a size 4 cemented triathlon universal tibial baseplate with a 4 x 13 mm CS tibial bearing insert and an asymmetric 35 mm x 10 mm cemented patella Specimens removed/disposition: Bone, disposed of Pathology: None Surgeon: Joseline Espinoza MD Vice President Network Development: Darline Byrd Vice President Network Development: Whose services were required for positioning, retraction, exposure, closure, and assistance throughout the placement of the prosthetic components. Anesthesia: Spinal (With MAC, ASA 3) Estimated blood loss (mL): 250 Tourniquet time (min): 30 (At 250 mmHg) IV fluids (mL): 2,000 Urine output (mL): 250 Complications: None Findings: Osteopenia and severe degenerative osteoarthritis with large osteophytes. Flexion the patient was in varus deformity and extension she was in valgus defo rmity. Retained hardware with loss of medial femoral condyle during hardware removal of ingrown stable which was required secondary to the peg on the medial femoral condyle of the prosthesis Condition: stable Disposition: PACU (Then to floor for postoperative rehabilitation and pain management) Brief History: This 79-year-old woman presented to the office with left knee pain and a history of right total knee arthroplasty from which she did well. She had surgical intervention in the 50s , and she had a large scar along the medial aspect of her knee. She also had retained hardware in the form of a staple. The patient was unable to walk and had to take frequent rests. She continued to have increasing pain and decreasing functionality in her activities of daily living. After discussion in the office and failure of conservative measures, the patient was scheduled for total knee arthroplasty. Risks and complications were discussed with her and consents were signed. Questions were answered at that time. Procedure: The patient was brought to the operating theater, and after undergoing spinal anesthetic, with MAC and with supplemental adductor canal block, ASA 3, the left lower extremity was prepped with Dura-Prep and draped in usual fashion following placement of a tourniquet high on the leg. The leg was then draped free.? A surgical pause was performed, and at the time of the surgical pause, we confirmed the site and side of surgery. Additionally, we confirmed the appropriate and timely administration of preoperative antibiotics, Ancef 2 g.? The availability of equipment was confirmed, and the patient's identity was verbalized as well. Following the surgical pause, an incision was made centering over the patella continuing proximally and distally as necessary to allow access to the knee joint. Dissection continued through skin and soft tissues using a scalpel. Hemostasis was obtained using electrocautery. The skin incision was followed by a median parapatellar arthrotomy. The leg was extended and the patella was able to be displaced laterally.? Appropriate arrays and markers were placed in appropriate position for use of the Lorenzo.? Preoperative planning had been accomplished and was discussed in detail with the Lorenzo senior human resources representative.? Intraoperative mapping of the femur and tibia was accomplished after the arrays were placed.? Internal markers were also placed.? Once we had accomplished the Lorenzo mapping, we began the appropriate resections for placement of the prosthesis.? The plan was for a cruciate replacing left total knee arthroplasty. The patient had previously had a hybrid prosthesis with a cemented tibia and patella and press-fit femur. He liked this procedure and outcome of his knee so well, that he did not want to change plans. Once appropriate mapping had been accomplished retraction was established using manual retraction by surgical technicians and also the Lorenzo leg positioner and retractors.? The knee was evaluated.? There was significant osteoarthritic change as well as flexion contracture with varus deformity and a slight flexion contracture.? Appropriate bone resection was accomplished using the Lorenzo.? The femur was sized to a size 4.? Following tibial cuts, attention was directed to the femur.? Osteophytes were removed prior to this portion of the procedure.? We had performed a medial release at the beginning of the procedure to allow for placement of the array.? Proximal tibia was evaluated manually, and it was felt that appropriate size for the tibia was a size 4.? Tray was noted to fit nicely with good coverage. Trial reduction was accomplished with a size 4 femoral cruciate replacing component, a size 4 tibial tray and a size 4 CS tibial bearing insert which was 9 mm. The knee was placed through range of motion. The tray was increased to a size 11 and subsequently a size 13. With this change, there was good stability. There was full extension without lift off and the rotation of the tibia was marked. Alignment was felt to be appropriate as well.? The femur was drilled for the femoral pegs, and unfortunately, on the medial femoral condyle, the drill would not pass the final approximately 1 cm. This was secondary to the staple which was of concern at the beginning of the case. Therefore, at that point, the staple was identified. A combination of osteotomes, vice school crossing guard supervisor, and attempt at the staple removing device was attempted. With removal of the staple secondary to bone growth to the staple, there was loss of medial femoral condyle bone. Throughout the case, the bone was noted to be soft, and consideration has been given to cementing the components, but after loss of the medial femoral condyle bone, the decision was made to change to a cemented prosthesis. Once the staple was removed, we were able to drill the femur as noted. The components were removed after the femur had been drilled.? Prior to removal of the tibial tray which had been pinned in position with appropriate rotation as determined by the Lorenzo plan, we drilled and broached the tibia. All trial components were removed, and the wound was irrigated.? Plans were made for insertion of the prosthetic components.? Prior to this, the patella was manually prepared.? After resection of the articular surface with the jigging system, it was measured and measured a 35 mm patella.? We resected approximately 9 mm of patella.? Patellar height was restored with the patellar component. All surfaces were copiously irrigated in preparation for cementing, this included a pin on power in the sclerotic areas of the medial tibial plateau and patella. The surfaces were then dried and a bone plug was placed into the distal femur. Cementing was accomplished with one unit of simplex cement with tobramycin and 1 unit of fast set. This gave us excellent working time. Cement was placed initially under the proximal tibia and the tibia was impacted into position. Excess cement was removed from around the tibial component. The tibial tray was placed during the cementing process so that we could place the knee in extended position while the cement was allowed to fully cure. The patella was also cemented at this point in time and held with a patellar clamp. Once again excess cement was cleared from around the patellar component as well. The knee was held in the extended position until cement was allowed to fully cure. During that time we irrigated the knee with 20 mL of Betadine and 500 mL of normal saline, and this was allowed to remain in the knee for 3-4 minutes. Once the cement had fully cured, all surfaces were reevaluated for further extruded cement and where this was found it was excised. Tourniquet was released after 30 minutes following curing of the cement. Once the cement had fully cured and excess cement was cleared, the knee was then copiously irrigated and suctioned dry. Attention was then directed to closure. Closure was accomplished with 0 Vicryl in the fascial tissues, 2-0 Monocryl strata fix was used in the subcutaneous tissues, and the skin was closed with 3- 0 Monocryl strata fix. A sterile dressing was then placed consisting of Prineo, OpSite, ABDs, sterile soft roll, and an Andres wrap. The patient was returned the Recovery Room in a satisfactory condition. X-rays were obtained there. The patient will be discharged to the floor for postoperative rehabilitation and pain management. There were no specimens and no complications. Related Problem List Diagnoses (1) Primary osteoarthritis of left knee: (2) Retained orthopedic hardware:
[2024-08-18] MEDS: ceFAZolin 2,000 mg SDV 2000 MG IVP ×2 (09:53→17:48)
[2024-08-18] MEDS: tranexamic acid 1,000 mg/10mL SDV 1000 MG IV (09:53)
[2024-08-18] MEDS: ceFAZolin 1,000 mg SDV 2000 MG IRRIGATION (10:45)
[2024-08-18] MEDS: BUPivacaine 0.5% INJ 30 mL 20 ML XX (10:46)
[2024-08-18] MEDS: BUPivacaine liposome 13.3 mg/mL SDV 20 mL 266 MG INFILTRATI (10:46)
[2024-08-18] MEDS: vancomycin 1,000 MG SDV 1000 MG XX (10:47)
--- NOTE | 2024-08-18 13:58 | XRR_ITS ---
PROCEDURE INFORMATION: Exam: XR Left Knee Exam date and time: 08/18/2024 11:16 AM Age: 79 years old Clinical indication: Post-operative (0-2 days); Left tka; S/P left tka in pacu images TECHNIQUE: Imaging protocol: Radiologic exam of the left knee. Views: 1 or 2 views. COMPARISON: CT knee LT VEL [id number] 08/10/2024 8:52 AM FINDINGS: Bones/joints: Status post total knee replacement. Distal femoral and proximal tibial components appear intact and in satisfactory alignment. Soft tissues: Postoperative changes are present in the soft tissues about the knee including edema and/or hematoma and multiple foci of air. XR/XR knee LT 1-2V [id number] IMPRESSION: Postoperative changes as above.
--- NOTE | 2024-08-18 14:15 | ANE.PACU2 ---
Inpatient post-anesthesia follow up: Airway intact: Yes Vital signs: Temperature 97.3 F Pulse Rate 54 Respiratory Rate 15 Blood Pressure 134/65 Pulse Oximetry 97 Oxygen Delivery Me thod Room Air Oxygen Flow Rate 2 Fraction of Inspir ed Oxygen Hydration adequate: Yes Nausea and vomiting: No Pain level: 1 Mental status: Baseline
--- NOTE | 2024-08-18 14:35 | SUR.PHASEI ---
1336 Bilat foot pumps on and connected to pump. Pump on. 1430: Pt transported to room 269. Pt care nurse, Danyel, into room. Jocelyn and this nurse looked at dressing to left knee. VSTeressa Montaño accepted patient with no questions or concerns.
[2024-08-18] MEDS: oxyCODONE 5 mg IR Tab/Cap PO ×3 (15:02→23:02)
[2024-08-18] MEDS: CELEcoxib 200 mg Capsule PO (15:03)
[2024-08-18] MEDS: sodium chloride 0.9% 1,000 ML 100 ML IV (15:04)
[2024-08-18] MEDS: tranexamic acid 1,000 MG/100 ML PREMIX 600 MG IV (15:05)
[2024-08-18] MEDS: mupirocin oint 22 gm 1 APPLIC TOPICAL (17:48)
[2024-08-18] MEDS: calcium carbonate 500 mg Chew Tablet 1000 MG PO (17:48)
[2024-08-18] MEDS: diclofenac 1% Topical Gel 100 gm 1 APPLIC TOPICAL ×2 (17:48→20:32)
[2024-08-18] MEDS: chlorhexidine gluconate 0.12% Btl 473 mL 30 ML MUCOUS MEM ×2 (17:49→20:32)
[2024-08-18] MEDS: sennosides-docusate Tablet 2 TAB PO (17:49)
[2024-08-18] MEDS: iron polysaccharide complex 150 mg Capsule PO (17:49)
--- NOTE | 2024-08-18 18:02 | PC.NURSE ---
pt had(7) 100 bills = total $700 in backpack, pt doesnt want to know, money counted by me and Bhumika RN.
--- NOTE | 2024-08-18 18:04 | PC.NURSE ---
this nurse witnessed pts nurse counting her money (7-$100=$700), money in white envelope, in her owl bag at the bedside, pt refused to have the nurses secure it and lock it up in the pyxis.
--- NOTE | 2024-08-18 22:59 | PC.NURSE ---
Belongings Patient has $700 (7 separate $100 bills) at bedside in envelope. This nurse along with COURTNEY Ramirez and Security Jayy counted money at bedside in front of patient. Verified amount of (7) $100 bills for a total of $700. Money placed in secure belongings envelope at bedside with verified count written on front with patient information. Envelope given to Security Jayy at bedside. Patient does not wish for her , or any other family/friends, to be aware of this belonging. Jayy voiced that envelope is placed in security safe and greenhouse assistant is aware.
[2024-08-19] VITALS (17 sets, daily range): BP systolic 140–178; BP diastolic 68–81; PULSE 54–87; RESP 16–20; TEMP 36.1–36.7; O2SAT 95–100
[2024-08-19] MEDS: ceFAZolin 2,000 mg SDV 2000 MG IVP ×2 (01:44→09:02)
[2024-08-19] MEDS: CELEcoxib 200 mg Capsule PO (01:44)
[2024-08-19] MEDS: sodium chloride 0.9% 1,000 ML 100 ML IV (02:48)
[2024-08-19] MEDS: oxyCODONE 5 mg IR Tab/Cap PO ×2 (05:50→15:00)
[2024-08-19] MEDS: acetaminophen 1,000 MG/100 ML PIGGYBACK 400 MG IV (05:54)
[2024-08-19 06:11] LABS: Basophils % 0.3 %; Lymphocytes # 2.4 10^3/uL (0.8-4.8); Lymphocytes % 20.1 %; Mean Corpuscular HGB Conc 31.1 g/dL (30-55); Mean Corpuscular Hemoglobin 33.1 pg (27-33); Mean Corpuscular Volume 106.4 fl (85-98); Mean Platelet Volume 10.1 fL (7.4-10.4); Monocytes # 0.9 10^3/uL (0.2-0.9); Monocytes % 7.8 %; Neutrophils # 8.46 10^3/uL (1.8-7.7); Neutrophils % 71.4 %; Nucleated Red Blood Cells % 0 %; Platelet Count 219 10^3/cmm (157-399); Red Blood Count 3.29 10^6/uL (3.85-5.65); Red Cell Distribution Width 14.2 % (12.1-15.1); White Blood Count 11.84 10^3/uL (3.29-11.43)
[2024-08-19 06:29] LABS: Anion Gap 14.1 (5-19); Blood Urea Nitrogen 11 mg/dL (8-23); Calcium 8.2 mg/dL (8.5-10.5); Carbon Dioxide 22 mmol/L (22-29); Chloride 107 mmol/L (98-107); Creatinine Clr Calc Pharmacy 43.0386; Glucose 107 mg/dL (65-115); Osmolality Calculated 288 mOsm/kg (285-295); Potassium 4.1 mmol/L (3.5-5.1); Sodium 139 mmol/L (136-145)
[2024-08-19] MEDS: ondansetron 2 mg/ML SDV 2 mL 4 MG IVP (07:51)
[2024-08-19] MEDS: mupirocin oint 22 gm 1 APPLIC TOPICAL (09:01)
[2024-08-19] MEDS: diclofenac 1% Topical Gel 100 gm 1 APPLIC TOPICAL ×2 (09:01→14:59)
--- NOTE | 2024-08-19 09:29 | W.PM.EVENTAC ---
Event Note Event Note: Stopped in hallway regarding nurses concern regarding patient. She has been vomiting, and had felt like her eggs did not pass this morning. She eventually vomited up a little bit of egg but still cannot drink any liquid without immediately vomiting it up. She tells me she has a history of esophageal dilation in the past. She has been having dysphagia to solids prior to coming in. I briefly called her primary care provider, orthopedics, and facilitated a consult to general surgery for possible food bolus. I will certainly be available should I be able to provide any further assistance.
--- NOTE | 2024-08-19 09:57 | P.CONIM_ITS ---
Providers/Reason For Consult 2 Consulting Physician/Specialty*: Dr. Melendrez general surgery Reason for Consult*: food bolus impaction Attending Physician: Joseline Espinoza MD Primary Care Provider: Maurice Alcantar History of Present Illness History of Present Illness [place] Reyes is a 79 year old female who had orthopedic surgery and is now complaining of an impacted food bolus. Patient has history of esophageal dilation. She started vomiting this morning after eating part of her breakfast. She is spitting anything she drinks. Complaining of some chest discomfort. Medications/Allergies Home Medications Medication Instructions Recorded Confirmed Last Taken Type hydrocodone 10 mg-acetaminophen 1 tab PO Q6H PRN Pain 10/19/19 08/17/24 08/15/24 History 325 mg tablet ([place]) losartan 100 mg tablet 100 mg PO DAILY 10/19/19 08/17/24 08/17/24 History mupirocin 2 % topical ointment 1 applic topical BID #22 grams 02/01/21 08/17/24 03/25/21 04:00 Rx amlodipine 5 mg tablet 5 mg PO DAILY 03/12/21 08/17/24 08/18/24 04:15 History folic acid 1 mg tablet 1 mg PO DAILY 03/12/21 08/17/24 03/25/21 04:00 History hydrochlorothiazide 25 mg tablet 25 mg PO DAILY 03/12/21 08/17/24 08/17/24 History diclofenac sodium 1 % topical gel 2 g topical QID #100 grams 06/17/24 08/17/24 Unknown Rx albuterol sulfate 90 mcg/actuation 2 puff inhalation Q6H PRN Allergy 07/26/24 08/17/24 Unknown History aerosol inhaler Symptoms gabapentin 100 mg capsule 100 mg PO DAILY PRN Pain 07/26/24 08/17/24 08/15/24 History hydroxychloroquine 200 mg tablet 400 mg PO DAILY 07/26/24 08/17/24 08/17/24 History levothyroxine 125 mcg tablet 112 mcg PO DAILY 07/26/24 08/17/24 08/18/24 04:15 History (Synthroid) methotrexate sodium 2.5 mg tablet 10 mg PO Q7D 07/26/24 08/17/24 08/15/24 History potassium chloride 20 mEq 20 meq PO DAILY 07/26/24 08/17/24 08/16/24 History tablet,extended release quetiapine 25 mg tablet 25 mg PO .qhs PRN Sleep 07/26/24 08/17/24 08/16/24 History oxycodone 5 mg tablet 5 mg PO Q4H PRN pain 7 days #40 08/18/24 Unknown Rx tabs Allergies Allergy/AdvReac Type Severity Reaction Status Date / Time No Known Allergies Allergy Verified 08/18/24 07:02 Current Medications Generic Name Dose Route Start Last Admin Trade Name Freq PRN Reason Stop Dose Admin Calcium Carbonate 1,000 mg 08/18/24 18:00 08/18/24 17:48 Calcium Carbonate 500 Mg Chew Tablet PO 1,000 mg BID CHOLO Administration Cefazolin Sodium 2,000 mg 08/18/24 18:00 08/19/24 09:02 Cefazolin 2,000 Mg Sdv IVP 08/19/24 10:01 2,000 mg Q8H CHOLO Administration Protocol Celecoxib 200 mg 08/18/24 14:22 08/19/24 01:44 Celecoxib 200 Mg Capsule PO 200 mg Q12H CHOLO Administration Chlorhexidine Gluconate 30 ml 08/18/24 17:00 08/18/24 20:32 Chlorhexidine Gluconate 0.12% Btl 473 Ml MUCOUS MEM 30 ml QID CHOLO Administration Diclofenac Sodium 1 applic 08/18/24 17:00 08/19/24 09:01 Diclofenac 1% Topical Gel 100 Gm TOPICAL 1 applic QID CHOLO Administration Sodium Chloride 1,000 mls @ 100 mls/hr 08/18/24 14:22 08/19/24 02:48 Sodium Chloride 0.9% IV 100 mls/hr .Q10H CHOLO Administration Mupirocin 1 applic 08/18/24 18:00 08/19/24 09:01 Mupirocin Oint 22 Gm TOPICAL 1 applic BID CHOLO Administration Ondansetron HCl 4 mg 08/18/24 14:22 08/19/24 07:51 Ondansetron 2 Mg/Ml Sdv 2 Ml IVP 4 mg Q6H PRN Administration NAUSEA AND VOMITING Oxycodone HCl 5 - 10 mg 08/18/24 14:22 08/19/24 05:50 Oxycodone 5 Mg Ir Tab/Cap PO 10 mg Q4H PRN Administration MODERATE TO SEVERE PAIN Polysaccharide Iron Complex 150 mg 08/18/24 18:00 08/18/24 17:49 Iron Polysaccharide Complex 150 Mg Capsule PO 150 mg BIDWM CHOLO Administration Senna/Docusate Sodium 2 tab 08/18/24 18:00 08/18/24 17:49 Sennosides-Docusate Tablet PO 2 tab BID CHOLO Administration PFSH Acute 2 PFSH: Medical History Primary osteoarthritis of left knee Social History Smoking and tobacco/nicotine status: never used tobacco/nicotine Vitals/I&O/Wt Last Vital Signs Temp 97.5 F L 08/19/24 07:27 Pulse 55 L 08/19/24 07:27 Resp 17 08/19/24 07:27 BP 146/81 08/19/24 07:27 Pulse Ox 98 08/19/24 07:27 O2 Del Method Room Air 08/19/24 07:27 O2 Flow Rate 2 08/18/24 14:14 08/18/24 08/19/24 08/19/24 22:59 06:59 14:59 Intake Total 660 / 2760 1176.667 / 3936.667 100 / 100 Output Total 1000 / 1750 500 / 2250 Balance -340 / 1010 676.667 / 1686.667 100 / 100 Weight last 48 hrs Weight 161 lb 9.6 oz Weight 160 lb Weight 144 lb Physical Exam 2 Narrative: Chest: Unlabored breathing room air. No lymphadenopathy. Heart: Regular rate and rhythm. Abdomen: Soft, nontender, nondistended. No masses or lymphadenopathy. Urinary Catheter Management: Bowman: Cath Placed During This Visit: yes, but has since been removed by the nurse Reason for Continuing Indwelling Catheter: Perioperative Use in Selected Surgeries Urinary Catheter Date of Insertion: 08/18/24 Urinary Catheter Time of Insertion: 10:15 Date Urinary Catheter Removed: 08/19/24 Time Urinary Catheter Discontinued: 06:10 Data 08/19/24 06:04 08/19/24 06:04 A&P Assessment and plan (1) Bolus impaction of digestive tract: Plan 79-year-old female consulted for food bolus impaction. Discussed risk and benefits of diagnostic EGD with possible food bolus disimpaction. Patient agreed to proceed. If she tolerates clears this afternoon after the procedure she can be discharged. Coding Level of Care Code 80345 Diagnoses Bolus impaction of digestive tract Time Spent (min) 30
--- NOTE | 2024-08-19 13:46 | ANES.PREANE2 ---
Pre-Anesthetic Assessment Height/Weight: Height 1.6 m Weight 73.301 kg Temp Pulse Resp BP Pulse Ox O2 Del Method O2 Flow Rate 98.1 F 59 L 18 154/70 100 Room Air 2 08/19/24 13:16 08/19/24 13:16 08/19/24 13:16 08/19/24 13:16 08/19/24 13:16 08/19/24 13:16 08/18/24 14:14 Preop Diagnosis: Food Bolus Operation Date: 08/18/24 08:30 Proposed Procedures p Lorenzo Robot Total Knee Arthroplasty(Left) - Joseline Espinoza MD Operation Date: 08/19/24 13:00 Proposed Procedures p EGD for foreign body removal(Not Applicable) - Bentley Melendrez MD Was Beta Harinder taken within 24 hours: N/A Was Clonidine taken within 24 hours: N/A Last intake: Intake Last Liquid Date 08/19/24 Last Liquid Time 08:00 Last Solid Date 08/19/24 Last Solid Time 08:00 Social No alcohol and No tobacco Exam alert, oriented x 3, clear to auscultation bilaterally and regular rate & rhythm Airway Submandibular: within normal limits Cervical ROM: within normal limits Mallampati: Class II Dentition: false History/ROS No significant history except as noted and No significant complaints Pulmonary None reported CV/HEM Hypertension None reported Hepatic None reported GI None reported Metabolic Thyroid Disease Musc/skel Osteoarthritis/DJD Neuropsych None reported Anesthetic Plan ASA status: 3 (Left total knee by Olga yesterday) Anesthesia: Anesthesia Evaluation and General Risk of > 500 ml blood loss (7ml/kg in children): No Medications/Allergies Home Medications Medication Instructions Recorded Confirmed Last Taken Type hydrocodone 10 mg-acetaminophen 1 tab PO Q6H PRN Pain 10/19/19 08/17/24 08/15/24 History 325 mg tablet ([place]) losartan 100 mg tablet 100 mg PO DAILY 10/19/19 08/17/24 08/17/24 History mupirocin 2 % topical ointment 1 applic topical BID #22 grams 02/01/21 08/17/24 03/25/21 04:00 Rx amlodipine 5 mg tablet 5 mg PO DAILY 03/12/21 08/17/24 08/18/24 04:15 History folic acid 1 mg tablet 1 mg PO DAILY 03/12/21 08/17/24 03/25/21 04:00 History hydrochlorothiazide 25 mg tablet 25 mg PO DAILY 03/12/21 08/17/24 08/17/24 History diclofenac sodium 1 % topical gel 2 g topical QID #100 grams 06/17/24 08/17/24 Unknown Rx albuterol sulfate 90 mcg/actuation 2 puff inhalation Q6H PRN Allergy 07/26/24 08/17/24 Unknown History aerosol inhaler Symptoms gabapentin 100 mg capsule 100 mg PO DAILY PRN Pain 07/26/24 08/17/24 08/15/24 History hydroxychloroquine 200 mg tablet 400 mg PO DAILY 07/26/24 08/17/24 08/17/24 History levothyroxine 125 mcg tablet 112 mcg PO DAILY 07/26/24 08/17/24 08/18/24 04:15 History (Synthroid) methotrexate sodium 2.5 mg tablet 10 mg PO Q7D 07/26/24 08/17/24 08/15/24 History potassium chloride 20 mEq 20 meq PO DAILY 07/26/24 08/17/24 08/16/24 History tablet,extended release quetiapine 25 mg tablet 25 mg PO .qhs PRN Sleep 07/26/24 08/17/24 08/16/24 History oxycodone 5 mg tablet 5 mg PO Q4H PRN pain 7 days #40 08/18/24 Unknown Rx tabs Allergies Allergy/AdvReac Type Severity Reaction Status Date / Time No Known Allergies Allergy Verified 08/18/24 07:02 Current Medications Generic Name Dose Route Start Last Admin Trade Name Mark PRN Reason Stop Dose Admin Amlodipine Besylate 5 mg 08/19/24 09:00 08/19/24 11:10 Amlodipine 5 Mg Tablet PO Not Given DAILY CHOLO Aspirin 325 mg 08/19/24 09:00 08/19/24 11:10 Aspirin 325 Mg Ec Tablet PO Not Given DAILY [facility] Calcium Carbonate 1,000 mg 08/18/24 18:00 08/19/24 11:10 Calcium Carbonate 500 Mg Chew Tablet PO Not Given BID CHOLO Celecoxib 200 mg 08/18/24 14:22 08/19/24 01:44 Celecoxib 200 Mg Capsule PO 200 mg Q12H [facility] Administration Chlorhexidine Gluconate 30 ml 08/18/24 17:00 08/19/24 12:31 Chlorhexidine Gluconate 0.12% Btl 473 Ml MUCOUS MEM Not Given QID [facility] Diclofenac Sodium 1 applic 08/18/24 17:00 08/19/24 09:01 Diclofenac 1% Topical Gel 100 Gm TOPICAL 1 applic QID [facility]OLO Administration Folic Acid 1 mg 08/19/24 09:00 08/19/24 11:10 Folic Acid 1 Mg Tablet PO Not Given DAILY [facility] Hydrochlorothiazide 25 mg 08/19/24 09:00 08/19/24 11:11 Hydrochlorothiazide 25 Mg Tablet PO Not Given DAILY [facility] Hydroxychloroquine Sulfate 400 mg 08/19/24 09:00 08/19/24 11:11 Hydroxychloroquine 200 Mg Tablet PO Not Given DAILY [facility] Sodium Chloride 1,000 mls @ 100 mls/hr 08/18/24 14:22 08/19/24 02:48 Sodium Chloride 0.9% IV 100 mls/hr .Q10H [facility] Administration Levothyroxine Sodium 112 mcg 08/19/24 09:00 08/19/24 11:11 Levothyroxine 125 Mcg Tablet PO Not Given DAILY [facility] Losartan Potassium 100 mg 08/19/24 09:00 08/19/24 11:11 Losartan 50 Mg Tablet PO Not Given DAILY [facility] Multivitamins Therapeutic 1 tab 08/19/24 09:00 08/19/24 11:11 Multivitamin Therapeutic Tablet PO Not Given DAILY [facility] Mupirocin 1 applic 08/18/24 18:00 08/19/24 09:01 Mupirocin Oint 22 Gm TOPICAL 1 applic BID [facility] Administration Ondansetron HCl 4 mg 08/18/24 14:22 08/19/24 07:51 Ondansetron 2 Mg/Ml Sdv 2 Ml IVP 4 mg Q6H PRN Administration NAUSEA AND VOMITING Oxycodone HCl 5 - 10 mg 08/18/24 14:22 08/19/24 05:50 Oxycodone 5 Mg Ir Tab/Cap PO 10 mg Q4H PRN Administration MODERATE TO SEVERE PAIN Polysaccharide Iron Complex 150 mg 08/18/24 18:00 08/19/24 11:09 Iron Polysaccharide Complex 150 Mg Capsule PO Not Given BIDWM [facility] Potassium Chloride 20 meq 08/19/24 09:00 08/19/24 11:12 Potassium Chloride Er 20 Meq Tablet PO Not Given DAILY [facility] Senna/Docusate Sodium 2 tab 08/18/24 18:00 08/19/24 11:12 Sennosides-Docusate Tablet PO Not Given BID [facility] Vitamin D 1,000 unit 08/19/24 09:00 08/19/24 11:10 Cholecalciferol (Vitamin D3) 1,000 Unit Tablet PO Not Given DAILY [facility] Anesthesia Medical History Primary osteoarthritis of left knee Social History Smoking and tobacco/nicotine status: never used tobacco/nicotine Data Anesthesia 08/19/24 06:04 08/19/24 06:04 Short CBC 08/19/24 Range/Units 06:04 WBC 11.84 H (3.29-11.43) 10^3/uL Hgb 10.90 L (11.27-16.99) g/dL Hct 35.0 L (36-47) % MCV 106.4 H (85-98) fl Plt Count 219 (157-399) 10^3/cmm Neut % (Auto) 71.4 % Neut # (Auto) 8.46 H (1.8-7.7) 10^3/uL BMP 08/19/24 06:04 Sodium 139 Potassium 4.1 Chloride 107 Carbon Dioxide 22 BUN 11 Creatinine 1.0 H Glucose 107 Calcium 8.2 L Cardiac Studies: No Data to Display
--- NOTE | 2024-08-19 14:03 | PM.MISC ---
Miscellaneous Note Purpose of Documentation: Disimpacted food bolus in esophagus. If patient tolerates clear liquids she can be discharged today.
--- NOTE | 2024-08-19 14:30 | ANE.PACU2 ---
Inpatient post-anesthesia follow up: Airway intact: Yes Vital signs: Temperature 97.6 F Pulse Rate 60 Respiratory Rate 16 Blood Pressure 159/77 Pulse Oximetry 97 Oxygen Delivery Me thod Room Air Oxygen Flow Rate 2 Fraction of Inspir ed Oxygen Hydration adequate: Yes Nausea and vomiting: No Pain level: 1 Mental status: Baseline
--- NOTE | 2024-08-19 15:42 | PM.DCS ---
Discharge Providers Date of Admission: 08/18/24 13:34 Date of Discharge: August 19, 2024 Attending Provider at Admission: Joseline Espinoza MD Attending Provider at Discharge: Joseline Espinoza MD Primary Care Provider: Maurice Alcantar Diagnoses at Discharge Discharge Diagnosis (1) Bolus impaction of digestive tract: Status: Acute Reason for Visit Reason for Visit: M17.12 Physical Exam Urinary Catheter Management: Bowman: Cath Placed During This Visit: yes, but has since been removed by the nurse Reason for Continuing Indwelling Catheter: Perioperative Use in Selected Surgeries Urinary Catheter Date of Insertion: 08/18/24 Urinary Catheter Time of Insertion: 10:15 Date Urinary Catheter Removed: 08/19/24 Time Urinary Catheter Discontinued: 06:10 Discharge Data Studies Completed and Pending Completed Studies During Hospitalization Category Date Time Status XR knee LT 1-2V 23939 Routine Exams 08/18/24 13:58 Completed Pending at discharge Category Date Time Status Complete Blood Count w/Auto AM LABS Lab 08/20/24 04:00 Ordered Complete Blood Count w/Auto AM LABS Lab 08/21/24 04:00 Ordered Pathology: Surgical [PTH] Routine Pth 08/18/24 10:51 Received Radiology Impressions Knee X-Ray 08/18/24 13:58 IMPRESSION: Postoperative changes as above. Laboratory Results WBC 11.84 10^3/uL (3.29-11.43) H 08/19/24 06:04 RBC 3.29 10^6/uL (3.85-5.65) L 08/19/24 06:04 Hgb 10.90 g/dL (11.27-16.99) L 08/19/24 06:04 Hct 35.0 % (36-47) L 08/19/24 06:04 MCV 106.4 fl (85-98) H 08/19/24 06:04 MCH 33.1 pg (27-33) H 08/19/24 06:04 MCHC 31.1 g/dL (30-55) 08/19/24 06:04 RDW 14.2 % (12.1-15.1) 08/19/24 06:04 Plt Count 219 10^3/cmm (157-399) 08/19/24 06:04 MPV 10.1 fL (7.4-10.4) 08/19/24 06:04 Neut % (Auto) 71.4 % 08/19/24 06:04 Lymph % (Auto) 20.1 % 08/19/24 06:04 [place] % (Auto) 7.8 % 08/19/24 06:04 Eos % (Auto) 0.0 % 08/19/24 06:04 Baso % (Auto) 0.3 % 08/19/24 06:04 Neut # (Auto) 8.46 10^3/uL (1.8-7.7) H 08/19/24 06:04 Lymph # (Auto) 2.4 10^3/uL (0.8-4.8) 08/19/24 06:04 [place] # (Auto) 0.9 10^3/uL (0.2-0.9) 08/19/24 06:04 Eos # (Auto) 0.0 10^3/uL (0.0-0.8) 08/19/24 06:04 Baso # (Auto) 0.0 10^3/uL (0.0-0.1) 08/19/24 06:04 Nucleated RBC % (auto) 0 % 08/19/24 06:04 Nucleated RBCs # 0.0 /100WBC 08/19/24 06:04 Sodium 139 mmol/L (136-145) 08/19/24 06:04 Potassium 4.1 mmol/L (3.5-5.1) 08/19/24 06:04 Chloride 107 mmol/L (98-107) 08/19/24 06:04 Carbon Dioxide 22 mmol/L (22-29) 08/19/24 06:04 Anion Gap 14.1 (5-19) 08/19/24 06:04 BUN 11 mg/dL (8-23) 08/19/24 06:04 Creatinine 1.0 mg/dL (0.5-0.9) H 08/19/24 06:04 GFR Calculation Not Reportable 08/19/24 06:04 Glucose 107 mg/dL (65-115) 08/19/24 06:04 Calculated Osmolality 288 mOsm/kg (285-295) 08/19/24 06:04 Calcium 8.2 mg/dL (8.5-10.5) L 08/19/24 06:04 Vitals Last Vital Signs Temp 97.6 F 08/19/24 14:42 Pulse 60 08/19/24 15:10 Resp 16 08/19/24 15:10 BP 159/77 08/19/24 15:10 Pulse Ox 97 08/19/24 15:10 O2 Del Method Room Air 08/19/24 15:10 O2 Flow Rate 2 08/18/24 14:14 Discharge Plan Discharge Patient Disposition: Home Health Service Condition: Stable Prescriptions: New oxycodone 5 mg tablet 5 mg PO Q4H PRN (Reason: pain) 7 Days Qty: 40 0RF celecoxib 200 mg Capsule 200 mg PO 1XD 30 Days Qty: 30 0RF acetaminophen 500 mg Tablet 1,000 mg PO Q8H 15 Days Qty: 90 0RF aspirin 325 mg Tablet,Delayed Release (Dr/Ec) 325 mg PO DAILY 30 Days Qty: 30 0RF Continued losartan 100 mg tablet 100 mg PO DAILY hydroxychloroquine 200 mg tablet 400 mg PO DAILY quetiapine 25 mg tablet 25 mg PO .qhs PRN (Reason: Sleep) methotrexate sodium 2.5 mg tablet 10 mg PO Q7D gabapentin 100 mg capsule 100 mg PO DAILY PRN (Reason: Pain) albuterol sulfate 90 mcg/actuation HFA aerosol inhaler 2 puff inhalation Q6H PRN (Reason: Allergy Symptoms) potassium chloride 20 mEq tablet extended release 20 meq PO DAILY mupirocin 2 % ointment 1 applic topical BID Qty: 22 0RF Rx Instructions: pea sized amount to each nostril twice daily 5 days prior to surgery. diclofenac sodium 1 % gel 2 g topical QID Qty: 100 2RF Rx Instructions: apply to single elbow, wrist or hand; for hand includes palm/fingers/back of hand amlodipine 5 mg tablet 5 mg PO DAILY folic acid 1 mg tablet 1 mg PO DAILY hydrochlorothiazide 25 mg tablet 25 mg PO DAILY levothyroxine [Synthroid] 125 mcg tablet 112 mcg PO DAILY Held hydrocodone-acetaminophen [[place]] 10-325 mg tablet 1 tab PO Q6H PRN (Reason: Pain) Hold Instructions: Resume on 08/26/24. Discharge Orders: Discharge Order (Routine); Ordered 08/19/24 Ordered By: Joseline Espinoza Referrals: [facility] [Outside] Joseline Espinoza MD [Physician] - 08/31/24 11:15 am Discharge Diet: Advance as tolerated and Usual diet Discharge Activity: Limit activity as instructed and As per PT/OT instructions Patient Instructions: Acetaminophen (By mouth), Aspirin (By mouth), Celecoxib (By mouth), Oxycodone, Slow Release (By mouth), Acute Wound Care (DC), Total Knee Replacement (DC), Opioid Safety, Post Anesthesia Care Activity Restrictions/Additional Instructions: Ice and elevation to left knee. You may weight-bear as tolerated. Range of motion, strengthening, and ambulation per physical therapy. Keep your clear plastic dressing in place until you are seen in the office. You may shower but do not submerge your knee in water. If the dressing lifts up, remove it to prevent water against your skin. Discharge Attestations Time Spent in Discharge Care*: greater than 30 min Quality Metrics Clinical Quality Measures [ No reported AMI, CVA or VTE this stay] Coding Level of Care Code Acute Code for Chg Fwd Diagnoses Bolus impaction of digestive tract
--- NOTE | 2024-08-19 17:40 | P.DS_ITS ---
Discharge Providers Date of Admission: 08/18/24 13:34 Date of Discharge: August 19, 2024 Attending Provider at Admission: Joseline Espinoza MD Attending Provider at Discharge: Joseline Espinoza MD Consults: Dr. Dennise Melendrez Primary Care Provider: Maurice Alcantar Diagnoses at Discharge Discharge Diagnosis (1) Primary osteoarthritis of left knee: Status: Chronic (2) Retained orthopedic hardware: Status: Acute (3) Status post total left knee replacement using cement: Status: Acute Permanent problem details: Date of procedure: August 18, 2024 Diagnosis: Primary osteoarthritis left knee Post-op findings: Large osteophytes with varus deformity and flexion, valgus in extension. Retained hardware. Loss of bone from removal of retained staple medial knee involving medial femoral condyle. Procedure done: Left total knee arthroplasty, cemented, with hardware removal from medial femoral condyle Implants: Left total knee arthroplasty utilizing the following components: The Zuffle triathlon total knee system with a size 4 cemented cruciate retaining left femoral component and a size 4 cemented triathlon universal tibial baseplate with a 4 x 13 mm CS tibial bearing insert and an asymmetric 35 mm x 10 mm cemented patella (4) Bolus impaction of digestive tract: Status: Acute Reason for Visit Reason for Visit: M17.12 Brief History: This 79-year-old woman presented to the office with left knee pain and a history of right total knee arthroplasty from which she did well. She had surgical intervention in the 50s , and she had a large scar along the medial aspect of her knee. She also had retained hardware in the form of a staple. The patient was unable to walk and had to take frequent rests. She continued to have increasing pain and decreasing functionality in her activities of daily living. After discussion in the office and failure of conservative measures, the patient was scheduled for total knee arthroplasty. Risks and complications were discussed with her and consents were signed. Questions were answered at that time. Hospital Course Hospital Course This 79-year-old woman was admitted under observation status following same-day surgery for left total knee arthroplasty. Initially, plans were made for left total knee with Lorenzo guidance, uncemented, however, we were not able to accommodate the prosthesis with a staple that the patient had had remotely placed in the 1949s. This required removal of the staple, and with removal of the staple, adherent bone caused a defect in the medial femoral condyle. Also, throughout the surgical procedure, the patient was noted to have significant osteopenia. Because of this, consideration was given to a cemented prosthesis, and once we had the bone loss secondary to the staple removal, decision was made to proceed with a cemented total knee arthroplasty. The patient was admitted to the floor postoperatively. She was able to straight leg raise. And she did well. The morning after surgery, the patient was eating eggs, she had difficulty swallowing, and she was diagnosed with a food bolus. For this reason, Dr. Dennise Melendrez was consulted, and endoscopy was performed. The patient did have a prior history of esophageal dilation and food bolus. Physical Exam Const: COMMON NORMALS: no acute distress, average body habitus, patient oriented x3 and alert GENERAL APPEARANCE: cooperative and comfortable ORIENTATION/CONSCIOUSNESS: Yes awake HENMT: COMMON NORMALS: normocephalic and atraumatic HEAD & SCALP: normocephalic and atraumatic Eye: GENERAL EYE: appearance normal, both eyes and all related structures Chest: COMMONS NORMALS: normal inspection of the chest Resp: COMMON NORMALS: normal respiratory effort EFFORT & INSPECTION: Yes ab le to speak in complete sentences and Yes symmetric chest movement Extremity: LEFT LOWER EXTREMITY: Yes knee joint (Large outer dressing was removed. OpSite was dry and intact) Left knee: Yes ROM (Able to straight leg raise) and Yes neurovascular exam (Intact distally with no evidence of DVT) Neuro: COMMON NORMALS: patient oriented x3 SENSORIUM/ORIENTATION: Yes alert Psych: COMMON NORMALS: mental status grossly normal APPEARANCE: Yes grossly normal ATTITUDE: Yes calm and Yes engaged ATTENTION/CONCENTRATION: Yes attention grossly intact Skin: COMMON NORMALS: no rashes or lesions noted GENERAL SKIN EXAM: no rashes or lesions noted Urinary Catheter Management: Bowman: Cath Placed During This Visit: yes, but has since been removed by the nurse Reason for Continuing Indwelling Catheter: Perioperative Use in Selected Surgeries Urinary Catheter Date of Insertion: 08/18/24 Urinary Catheter Time of Insertion: 10:15 Date Urinary Catheter Removed: 08/19/24 Time Urinary Catheter Discontinued: 06:10 Discharge Data Studies Completed and Pending Completed Studies During Hospitalization Category Date Time Status XR knee LT 1-2V 67954 Routine Exams 08/18/24 13:58 Completed Pending at discharge Category Date Time Status Complete Blood Count w/Auto AM LABS Lab 08/20/24 04:00 Ordered Complete Blood Count w/Auto AM LABS Lab 08/21/24 04:00 Ordered Pathology: Surgical [PTH] Routine Pth 08/18/24 10:51 Received Radiology Impressions Knee X-Ray 08/18/24 13:58 IMPRESSION: Postoperative changes as above. Laboratory Results WBC 11.84 10^3/uL (3.29-11.43) H 08/19/24 06:04 RBC 3.29 10^6/uL (3.85-5.65) L 08/19/24 06:04 Hgb 10.90 g/dL (11.27-16.99) L 08/19/24 06:04 Hct 35.0 % (36-47) L 08/19/24 06:04 MCV 106.4 fl (85-98) H 08/19/24 06:04 MCH 33.1 pg (27-33) H 08/19/24 06:04 MCHC 31.1 g/dL (30-55) 08/19/24 06:04 RDW 14.2 % (12.1-15.1) 08/19/24 06:04 Plt Count 219 10^3/cmm (157-399) 08/19/24 06:04 MPV 10.1 fL (7.4-10.4) 08/19/24 06:04 Neut % (Auto) 71.4 % 08/19/24 06:04 Lymph % (Auto) 20.1 % 08/19/24 06:04 [place] % (Auto) 7.8 % 08/19/24 06:04 Eos % (Auto) 0.0 % 08/19/24 06:04 Baso % (Auto) 0.3 % 08/19/24 06:04 Neut # (Auto) 8.46 10^3/uL (1.8-7.7) H 08/19/24 06:04 Lymph # (Auto) 2.4 10^3/uL (0.8-4.8) 08/19/24 06:04 [place] # (Auto) 0.9 10^3/uL (0.2-0.9) 08/19/24 06:04 Eos # (Auto) 0.0 10^3/uL (0.0-0.8) 08/19/24 06:04 Baso # (Auto) 0.0 10^3/uL (0.0-0.1) 08/19/24 06:04 Nucleated RBC % (auto) 0 % 08/19/24 06:04 Nucleated RBCs # 0.0 /100WBC 08/19/24 06:04 Sodium 139 mmol/L (136-145) 08/19/24 06:04 Potassium 4.1 mmol/L (3.5-5.1) 08/19/24 06:04 Chloride 107 mmol/L (98-107) 08/19/24 06:04 Carbon Dioxide 22 mmol/L (22-29) 08/19/24 06:04 Anion Gap 14.1 (5-19) 08/19/24 06:04 BUN 11 mg/dL (8-23) 08/19/24 06:04 Creatinine 1.0 mg/dL (0.5-0.9) H 08/19/24 06:04 GFR Calculation Not Reportable 08/19/24 06:04 Glucose 107 mg/dL (65-115) 08/19/24 06:04 Calculated Osmolality 288 mOsm/kg (285-295) 08/19/24 06:04 Calcium 8.2 mg/dL (8.5-10.5) L 08/19/24 06:04 Vitals Last Vital Signs Temp 97.6 F 08/19/24 14:42 Pulse 60 08/19/24 15:10 Resp 16 08/19/24 15:10 BP 159/77 08/19/24 15:10 Pulse Ox 97 08/19/24 15:10 O2 Del Method Room Air 08/19/24 15:10 O2 Flow Rate 2 08/18/24 14:14 Discharge Plan Discharge Patient Disposition: Home Health Service Condition: Stable Prescriptions: New oxycodone 5 mg tablet 5 mg PO Q4H PRN (Reason: pain) 7 Days Qty: 40 0RF celecoxib 200 mg Capsule 200 mg PO 1XD 30 Days Qty: 30 0RF acetaminophen 500 mg Tablet 1,000 mg PO Q8H 15 Days Qty: 90 0RF aspirin 325 mg Tablet,Delayed Release (Dr/Ec) 325 mg PO DAILY 30 Days Qty: 30 0RF Continued losartan 100 mg tablet 100 mg PO DAILY hydroxychloroquine 200 mg tablet 400 mg PO DAILY quetiapine 25 mg tablet 25 mg PO .qhs PRN (Reason: Sleep) methotrexate sodium 2.5 mg tablet 10 mg PO Q7D gabapentin 100 mg capsule 100 mg PO DAILY PRN (Reason: Pain) albuterol sulfate 90 mcg/actuation HFA aerosol inhaler 2 puff inhalation Q6H PRN (Reason: Allergy Symptoms) potassium chloride 20 mEq tablet extended release 20 meq PO DAILY mupirocin 2 % ointment 1 applic topical BID Qty: 22 0RF Rx Instructions: pea sized amount to each nostril twice daily 5 days prior to surgery. diclofenac sodium 1 % gel 2 g topical QID Qty: 100 2RF Rx Instructions: apply to single elbow, wrist or hand; for hand includes palm/fingers/back of hand amlodipine 5 mg tablet 5 mg PO DAILY folic acid 1 mg tablet 1 mg PO DAILY hydrochlorothiazide 25 mg tablet 25 mg PO DAILY levothyroxine [Synthroid] 125 mcg tablet 112 mcg PO DAILY Held hydrocodone-acetaminophen [[place]] 10-325 mg tablet 1 tab PO Q6H PRN (Reason: Pain) Hold Instructions: Resume on 08/26/24. Discharge Orders: Discharge Order (Routine); Ordered 08/19/24 Ordered By: Joseline Espinoza Referrals: [facility] [Outside] Joseline Espinoza MD [Physician] - 08/31/24 11:15 am Discharge Diet: Advance as tolerated and Usual diet Discharge Activity: Limit activity as instructed and As per PT/OT instructions Patient Instructions: Acetaminophen (By mouth), Aspirin (By mouth), Celecoxib (By mouth), Oxycodone, Slow Release (By mouth), Acute Wound Care (DC), Total Knee Replacement (DC), Opioid Safety, Post Anesthesia Care Activity Restrictions/Additional Instructions: Ice and elevation to left knee. You may weight-bear as tolerated. Range of motion, strengthening, and ambulation per physical therapy. Keep your clear plastic dressing in place until you are seen in the office. You may shower but do not submerge your knee in water. If the dressing lifts up, remove it to prevent water against your skin. Discharge Attestations Time Spent in Discharge Care*: greater than 30 min Specific Discharge Activities: educating patient, documenting/other paperwork and evaluating patient/reviewing data Quality Metrics Clinical Quality Measures [ No reported AMI, CVA or VTE this stay] Coding Level of Care Code Acute Code for Chg Fwd Diagnoses Primary osteoarthritis of left knee M17.12 Retained orthopedic hardware Z96.9 Status post total left knee replacement using cement Z96.652 Bolus impaction of digestive tract
== END 2024-08-19 17:53 | disposition home health service (06) ==
LOC: MEDSURG 13:34
PROVIDERS: Nurse Practitioner; Student in an Organized Health Care Education/Training Program; Admitting Provider Specialist; PCP Family Medicine; Visit Provider Specialist
PROC: 8E0Y0CZ Robotic Assisted Procedure of Lower Extremity, Open Approach (ICD-10-PCS; CPT 27447; principal; 2024-08-18 08:30)
PROC: 0DJ08ZZ Inspection of Upper Intestinal Tract, Via Natural or Artificial Opening Endoscopic (ICD-10-PCS; CPT 43235; principal; 2024-08-19 13:00)
DX: M17.12 Unilateral primary osteoarthritis, left knee (principal); M85.88 Other specified disorders of bone density and structure, other site; Z96.9 Presence of functional implant, unspecified; T18.128A Food in esophagus causing other injury, initial encounter; I10 Essential (primary) hypertension
CPT/HCPCS: 27447; 36415; 43247; 51702; 73560; 80048; 85025; 88305; 97110; 97116; 97161; 97166; 97535; C1776; C9290; G0378; J0131; J0330; J0690; J1100; J2250; J2405; J2704; J2795; J3010; J3370; J3490; J7030

== ENCOUNTER → 2024-08-31 10:02 | Outpatient (BNVA) | payer MEDICARE, SELFPAY | PROVIDERS: PCP Family Medicine; Visit Provider Nurse Practitioner | DX: Z96.652 Presence of left artificial knee joint (principal); M17.12 Unilateral primary osteoarthritis, left knee | CPT/HCPCS: 99024 ==

== ENCOUNTER → 2024-10-28 09:43 | Outpatient (BNVA) | payer MEDICARE, SELFPAY | PROVIDERS: PCP Family Medicine; Visit Provider Nurse Practitioner | DX: Z96.652 Presence of left artificial knee joint (principal); M17.12 Unilateral primary osteoarthritis, left knee | CPT/HCPCS: 73560; 73565; 99024 ==

== ENCOUNTER → 2024-12-09 11:09 | Outpatient (BNVA) | payer MEDICARE, SELFPAY | PROVIDERS: PCP Family Medicine; Visit Provider Nurse Practitioner | DX: Z96.651 Presence of right artificial knee joint (principal); Z96.652 Presence of left artificial knee joint | CPT/HCPCS: 73560; 73565 ==

== ENCOUNTER → 2025-01-02 12:51 | Outpatient (BNVA) | payer MEDICARE, SELFPAY | PROVIDERS: PCP Family Medicine; Visit Provider Podiatrist Foot & Ankle Surgery | DX: M79.671 Pain in right foot (principal); M79.672 Pain in left foot; Q66.71 Congenital pes cavus, right foot; Q66.72 Congenital pes cavus, left foot; M77.41 Metatarsalgia, right foot; M77.42 Metatarsalgia, left foot | CPT/HCPCS: 73630; 99203 ==

== ENCOUNTER → 2025-04-17 12:55 | Outpatient (BNVA) | payer MEDICARE, SELFPAY | PROVIDERS: PCP Family Medicine; Visit Provider Nurse Practitioner | DX: Z96.652 Presence of left artificial knee joint (principal); I82.462 Acute embolism and thrombosis of left calf muscular vein; M17.12 Unilateral primary osteoarthritis, left knee | CPT/HCPCS: 73560; 73565; 99214 ==